=== PATIENT | female | born 1940 | race Caucasian/White ===

== ENCOUNTER 2022-12-20 09:33 | Day surgery (SDC) | payer MEDICARE, OTHER ==
[2022-12-15 16:15] LABS: BASOPHILS # (AUTO) 0.1 X10'3 (0-0.2); BASOPHILS % (AUTO) 0.8 % (0-1); EOSINOPHILS # (AUTO) 0.3 X10'3 (0-0.9); EOSINOPHILS % (AUTO) 3.3 % (0-6); LYMPHOCYTES # (AUTO) 2.3 X10'3 (1.1-4.8); LYMPHOCYTES % (AUTO) 27.9 % (21-51); MEAN CORPUSCULAR HEMOGLOBIN 29.6 PG (27.0-31.0); MEAN CORPUSCULAR VOLUME 89.8 FL (78-98); MEAN PLATELET VOLUME 8.4 FL (7.4-10.4); MONOCYTES # (AUTO) 0.7 X10'3 (0-0.9); MONOCYTES % (AUTO) 8.7 % (2-12); NEUTROPHILS # (AUTO) 4.9 X10'3 (1.8-7.7); NEUTROPHILS % (AUTO) 59.3 % (42-75); PRE OP HEMATOCRIT 45.7 % (35.0-45.0); PRE OP HEMOGLOBIN 15.1 g/dL (12.0-16.0); PRE OP PLATELET COUNT 200 X10'3 (140-440); RED BLOOD COUNT 5.09 X10'6 (4.20-5.60); RED CELL DISTRIBUTION WIDTH 14.2 % (11.5-14.5)
[2022-12-15 16:33] LABS: ALBUMIN 3.9 G/DL (3.4-5.0); ALBUMIN/GLOBULIN RATIO 1.2 (1.1-1.5); ALKALINE PHOSPHATASE 61 IU/L (46-116); BLOOD UREA NITROGEN 30 MG/DL (7-18); BUN/CREATININE RATIO 22.9 (6.6-38.0); CALCIUM 9.4 MG/DL (8.5-10.1); CHLORIDE 106 MMOL/L (99-107); CREATININE 1.31 MG/DL (0.40-0.90); PRE OP ALT 26 U/L (30-65); PRE OP ANION GAP 9 (8-16); PRE OP AST 18 U/L (10-37); PRE OP BILIRUB, TOTAL 0.8 MG/DL (0.0-1.0); PRE OP GLUCOSE 105 MG/DL (70-104); PRE OP POTASSIUM 3.6 MMOL/L (3.4-5.1); PRE OP SODIUM 143 MMOL/L (135-145); TOTAL CARBON DIOXIDE 28.4 MMOL/L (24-32); TOTAL PROTEIN 7.2 G/DL (6.4-8.2); eGFR 39 ML/MIN
[2022-12-20] VITALS (11 sets, daily range): BP systolic 118–157; BP diastolic 61–83
[~2022-12-20] VITALS: Ht 167.6 cm; Wt 88.0 kg
[~2022-12-20 09:33] MED LIST: ACET-2971 PO; BUPIVAcaine/PF 7.5mg/ml (0.75%) 10ml vial ONE; CELE100C98 PO; DOCUMENT DATE & TIME OF BETA-BLOCKER PO ONE; INDA2.5T5 PO; MULT-1130 PO; [UNRECOGNIZED DRUG - CODE] PO; ceFAZolin inj. 2,000 MG in dextrose 5%-water 100 ML IV ONE; famotidine 20mg tablet PO ONE; ringers solution, lactated 500 ML IV SCH
[2022-12-20] MEDS ORDERED: ringers solution, lacted 1,000 ML IV SCH (10:05)
[2022-12-20] MEDS ORDERED: labetalol 20mg/4ml (5mg/ml) syringe IV PRN (10:05)
[2022-12-20] MEDS ORDERED: morphine 2 MG/ML inj. syringe IV PRN (10:05)
[2022-12-20] MEDS ORDERED: ondansetron/PF 4mg/2ml inj IV PRN (10:05)
[2022-12-20] MEDS ORDERED: morphine 4 MG/ML inj SYRINge IV PRN (10:05)
[2022-12-20] MEDS ORDERED: LIDOcaine 1% (10mg/ml) 2ml vial ONE (10:21)
[2022-12-20] MEDS ORDERED: fentaNYL/PF 50MCG/1 ML 2ML syringe ONE (11:40)
[2022-12-20] MEDS ORDERED: midazolam 1 mg/ML 2ml injection ONE (11:40)
[2022-12-20] MEDS ORDERED: LIDOcaine 0.5% (5mg/ml) 50ml vial ONE (11:40)
--- NOTE | 2022-12-20 11:57 | NUR ---
Received from OR via [facility], accompanied by Anesthesiologist DR ESTRELLA and report given by Anesthesiologist AND TOWER CONTROL OPERATOR. PT DROWSY, DENIES PAIN. RIGHT HAND/WRIST W/BIAS DRSG COVERING INCISION/DRSG CDI. Addendum: 12/20/22 at 1245 by Lizeth Walker RN Amended: Links added.
--- NOTE | 2022-12-20 13:47 | NUR ---
PT UP AND ABLE TO AMBULATE SAFELY. D/C INSTRUCTIONS GIVEN AND GONE OVER W/PT WHO VERBALIZED UNDERSTANDING. PT D/CD TO HOME VIA W/C TO PRIVATE VEHICLE W/O INCIDENT. Addendum: 12/20/22 at 1408 by Lizeth Walker RN Amended: Links added.
== END 2022-12-20 13:47 | disposition home or self-care (01) ==
LOC: PAS 09:33
PROVIDERS: ATTEND Orthopaedic Surgery Hand Surgery
DX: G56.01 Carpal tunnel syndrome, right upper limb (principal); I10 Essential (primary) hypertension; M19.90 Unspecified osteoarthritis, unspecified site; E66.9 Obesity, unspecified; Z68.32 Body mass index [BMI] 32.0-32.9, adult; Z90.49 Acquired absence of other specified parts of digestive tract; Z98.49 Cataract extraction status, unspecified eye; Z98.890 Other specified postprocedural states; Z79.899 Other long term (current) drug therapy; Z87.891 Personal history of nicotine dependence; Z72.89 Other problems related to lifestyle
CPT/HCPCS: 36415; 64721; 80053; 82948; 85025; 93005; J0690; J2250; J3010; J3490; J7030; J7060; J7120; Z7506; Z7512; A4215